=== PATIENT | male | born 1935 | race Caucasian/White ===

== ENCOUNTER → 2022-04-11 15:26 | Outpatient (BNVA) | payer OTHER, SELFPAY | PROVIDERS: Visit Provider Podiatrist Foot & Ankle Surgery | DX: L60.3 Nail dystrophy (principal); M21.621 Bunionette of right foot; M21.622 Bunionette of left foot; M20.41 Other hammer toe(s) (acquired), right foot; M20.42 Other hammer toe(s) (acquired), left foot | CPT/HCPCS: 99214 ==

== ENCOUNTER → 2022-10-10 12:44 | Outpatient (BNVA) | payer OTHER, SELFPAY | PROVIDERS: Visit Provider Podiatrist Foot & Ankle Surgery | DX: L60.3 Nail dystrophy (principal); M21.621 Bunionette of right foot; M21.622 Bunionette of left foot; M20.41 Other hammer toe(s) (acquired), right foot; M20.42 Other hammer toe(s) (acquired), left foot | CPT/HCPCS: 99213 ==

== ENCOUNTER → 2023-04-10 12:35 | Outpatient (BNVA) | payer OTHER, SELFPAY | PROVIDERS: Visit Provider Podiatrist Foot & Ankle Surgery | DX: L60.3 Nail dystrophy (principal); M21.621 Bunionette of right foot; M21.622 Bunionette of left foot; M20.41 Other hammer toe(s) (acquired), right foot; M20.42 Other hammer toe(s) (acquired), left foot | CPT/HCPCS: 99213 ==

== ENCOUNTER → 2023-05-19 11:02 | Outpatient (BNVA) | payer OTHER, SELFPAY | PROVIDERS: Visit Provider Nurse Practitioner Family | DX: L57.8 Other skin changes due to chronic exposure to nonionizing radiation (principal); L85.3 Xerosis cutis; L57.0 Actinic keratosis; L84 Corns and callosities; Z85.828 Personal history of other malignant neoplasm of skin | CPT/HCPCS: 17004; 99213 ==

== ENCOUNTER → 2023-11-23 10:56 | Outpatient (BNVA) | payer OTHER, SELFPAY | PROVIDERS: Visit Provider Nurse Practitioner Family | DX: Z85.828 Personal history of other malignant neoplasm of skin (principal); L57.8 Other skin changes due to chronic exposure to nonionizing radiation; L85.3 Xerosis cutis; D18.01 Hemangioma of skin and subcutaneous tissue; L57.0 Actinic keratosis; L84 Corns and callosities | CPT/HCPCS: 17004; 99213 ==

== ENCOUNTER → 2024-01-08 12:42 | Outpatient (BNVA) | payer OTHER, SELFPAY | PROVIDERS: PCP Nurse Practitioner; Visit Provider Podiatrist Foot & Ankle Surgery | DX: L60.8 Other nail disorders (principal); L60.3 Nail dystrophy; M21.621 Bunionette of right foot; M21.622 Bunionette of left foot; M20.41 Other hammer toe(s) (acquired), right foot; M20.42 Other hammer toe(s) (acquired), left foot; L84 Corns and callosities | CPT/HCPCS: 99213 ==

== ENCOUNTER → 2024-10-07 12:48 | Outpatient (BNVA) | payer OTHER, SELFPAY | PROVIDERS: PCP Nurse Practitioner; Visit Provider Podiatrist Foot & Ankle Surgery | DX: L60.8 Other nail disorders (principal); L84 Corns and callosities; L60.3 Nail dystrophy; M21.621 Bunionette of right foot; M21.622 Bunionette of left foot; M20.41 Other hammer toe(s) (acquired), right foot; M20.42 Other hammer toe(s) (acquired), left foot | CPT/HCPCS: 99213 ==

== ENCOUNTER → 2024-11-12 13:55 | Outpatient (BNVA) | payer OTHER, SELFPAY | PROVIDERS: PCP Nurse Practitioner; Visit Provider Nurse Practitioner Family | DX: L57.8 Other skin changes due to chronic exposure to nonionizing radiation (principal); L85.3 Xerosis cutis; D18.01 Hemangioma of skin and subcutaneous tissue; L84 Corns and callosities; M79.674 Pain in right toe(s); Z08 Encounter for follow-up examination after completed treatment for malignant neoplasm; Z85.828 Personal history of other malignant neoplasm of skin; D48.5 Neoplasm of uncertain behavior of skin; L57.0 Actinic keratosis | CPT/HCPCS: 11102; 17000; 99213 ==

== ENCOUNTER → 2024-12-16 09:36 | Outpatient (BNVA) | payer OTHER, SELFPAY | PROVIDERS: PCP Nurse Practitioner; Visit Provider Dermatology | DX: C44.319 Basal cell carcinoma of skin of other parts of face (principal) | CPT/HCPCS: 17282 ==

== ENCOUNTER → 2025-06-16 10:15 | Outpatient (BNVA) | payer OTHER, SELFPAY | PROVIDERS: PCP Nurse Practitioner; Visit Provider Nurse Practitioner Family | DX: L57.8 Other skin changes due to chronic exposure to nonionizing radiation (principal); D18.01 Hemangioma of skin and subcutaneous tissue; L84 Corns and callosities; M79.674 Pain in right toe(s); Z08 Encounter for follow-up examination after completed treatment for malignant neoplasm; Z85.828 Personal history of other malignant neoplasm of skin; L57.0 Actinic keratosis; D37.01 Neoplasm of uncertain behavior of lip | CPT/HCPCS: 11102; 17004; 40490; 99213 ==

== ENCOUNTER → 2025-07-10 07:59 | Outpatient (BNVA) | payer OTHER, SELFPAY | PROVIDERS: PCP Nurse Practitioner; Visit Provider Dermatology | DX: L73.8 Other specified follicular disorders (principal); L90.5 Scar conditions and fibrosis of skin; C44.311 Basal cell carcinoma of skin of nose; C44.41 Basal cell carcinoma of skin of scalp and neck; D48.5 Neoplasm of uncertain behavior of skin | CPT/HCPCS: 11102; 15260; 17272; 17311; 99213 ==

== ENCOUNTER → 2025-07-14 13:09 | Outpatient (BNVA) | payer OTHER, SELFPAY | PROVIDERS: PCP Nurse Practitioner; Visit Provider Podiatrist Foot & Ankle Surgery | DX: L60.3 Nail dystrophy (principal); M21.621 Bunionette of right foot; M21.622 Bunionette of left foot; M20.41 Other hammer toe(s) (acquired), right foot; M20.42 Other hammer toe(s) (acquired), left foot; L84 Corns and callosities; I73.9 Peripheral vascular disease, unspecified; L60.8 Other nail disorders | CPT/HCPCS: 99213 ==

== ENCOUNTER → 2025-07-23 09:50 | Outpatient (BNVA) | payer OTHER, SELFPAY | PROVIDERS: PCP Nurse Practitioner; Visit Provider Dermatology | DX: C44.629 Squamous cell carcinoma of skin of left upper limb, including shoulder (principal); C44.311 Basal cell carcinoma of skin of nose | CPT/HCPCS: 99213 ==

== ENCOUNTER → 2025-08-06 09:48 | Outpatient (BNVA) | payer OTHER, SELFPAY | PROVIDERS: PCP Nurse Practitioner; Visit Provider Dermatology | DX: C44.311 Basal cell carcinoma of skin of nose (principal); C44.629 Squamous cell carcinoma of skin of left upper limb, including shoulder | CPT/HCPCS: 11604; 12034; 99213 ==

== ENCOUNTER → 2025-10-21 10:00 | Outpatient (BNVA) | payer OTHER, SELFPAY | PROVIDERS: PCP Nurse Practitioner; Visit Provider Nurse Practitioner Family | DX: L57.8 Other skin changes due to chronic exposure to nonionizing radiation (principal); Z08 Encounter for follow-up examination after completed treatment for malignant neoplasm; Z85.828 Personal history of other malignant neoplasm of skin; L57.0 Actinic keratosis | CPT/HCPCS: 17000; 99213 ==